=== PATIENT | male | born 1940 | race Caucasian/White ===

== ENCOUNTER 2017-07-15 14:08 | Emergency (ER) | payer MEDICARE, OTHER ==
[~2017-07-15] VITALS: Ht 193 cm; Wt 96.2 kg
[~2017-07-15 14:08] MED LIST: APIX5TAB3 PO; ASPI-630 PO; LISI-334 PO; LISI10TA2 PO; LISI1TAB5 PO; METO50TA2 PO; METO50TA29 PO; SIMV40TA3 PO
--- NOTE | 2017-07-15 15:10 | PHYS DOC ---
Past History Past Medical History: High Cholesterol, Hypertension Additional Past Medical Histor: pulmonary embolism Past Surgical History: Appendectomy, Hip Replacement Alcohol Use: None Drug Use: None Adult General Chief Complaint Chief Complaint: HEADACHE HPI HPI Patient is a 76 year old male who presents with day history of intermittent intensity gradual onset headache right frontal no eye pain or blurry vision no pain in the temporal area no jaw pain or difficulty swallowing or speaking. 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 Denies any head trauma. He is on anticoagulation with eloquis Review of Systems Review of Systems Constitutional: Denies fever or chills [] Eyes: Denies change in visual acuity, redness, or eye pain [] HENT: Denies nasal congestion or sore throat [] Respiratory: Denies cough or shortness of breath [] Cardiovascular: No additional information not addressed in HPI [] GI: Denies abdominal pain, nausea, vomiting, bloody stools or diarrhea [] : Denies dysuria or hematuria [] Musculoskeletal: Denies back pain or joint pain [] Integument: Denies rash or skin lesions [] Neurologic: Denies headache, focal weakness or sensory changes [] Endocrine: Denies polyuria or polydipsia [] All other systems were reviewed and found to be within normal limits, except as documented in this note. Allergies Allergies Allergies Coded Allergies Type Severity Reaction Last Updated Verified ampicillin Allergy Intermediate HIVES 10/10/15 Yes Physical Exam Physical Exam Constitutional: Well developed, well nourished, no acute distress, non-toxic appearance. [] HENT: Normocephalic, atraumatic, bilateral external ears normal, oropharynx moist, no oral exudates, nose normal. No pain to palpation in the right temporal or left lutheran. [] Eyes: PERRLA, EOMI, conjunctiva normal, no discharge. Eyes nontender no swelling or injection or drainage. [] Neck: Normal range of motion, no tenderness, supple, no stridor. No nuchal rigidity.[] Cardiovascular:Heart rate regular rhythm, no murmur [] Lungs & Thorax: Bilateral breath sounds clear to auscultation [] Abdomen: Bowel sounds normal, soft, no tenderness, no masses, no pulsatile masses. [] Skin: Warm, dry, no erythema, no rash. [] Back: No tenderness, no CVA tenderness. [] Extremities: No tenderness, no cyanosis, no clubbing, ROM intact, no edema. [] Neurologic: Alert and oriented X 3, normal motor function, normal sensory function, no focal deficits noted. [] Psychologic: Affect normal, judgement normal, mood normal. [] EKG EKG [] Radiology/Procedures Radiology/Procedures CT head negative for bleed but he does have sinusitis on the right side which probably explains his symptoms. Her radiology report Course & Med Decision Making Course & Med Decision Making Pertinent Labs and Imaging studies reviewed. (See chart for details) Symptoms are probably most consistent with tension or stress headache given the history however since he is on blood thinners we will check a CT scan to eliminate subdural hematoma. Do not suspect temporal arteritis there is no pain to palpation over the lutheran and no eye complaints. Plan to treat with oral antibiotics and treat symptoms of the headache.] Dragon Disclaimer Dragon Disclaimer This electronic medical record was generated, in whole or in part, using a voice recognition dictation system. Departure Departure: Impression: Primary Impression: Acute sinusitis Additional Impressions: Tension headache Sinus headache Disposition: HOME, SELF-CARE Condition: IMPROVED Referrals: MAGALYS AGUILERA MD (PCP) Patient Instructions: Sinusitis, [id number], Tension Headache, [id number] Scripts Cephalexin (KEFLEX) 500 Mg Capsule 1 CAP PO TID, #21 CAP Prov: JAYA TELLEZ MD 07/15/17 Problem Qualifiers JAYA TELLEZ MD Jul 15, 2017 15:10
--- NOTE | 2017-07-15 15:23 | RAD ---
CT head without contrast 07/15/2017 Clinical indication: Severe headache. Comparison: CT head 09/13/2015 Technique: Multiple CT images of the head were obtained without contrast according to standard protocol. RS Compliance Statement: One or more of the following individualized dose reduction techniques were utilized for this examination: 1. Automated exposure control 2. Adjustment of the mA and/or kV according to patient size 3. Use of iterative reconstruction technique Findings: No acute intracranial hemorrhage or extra-axial fluid collection. No midline shift. Ventricles and subarachnoid spaces are normal in size and configuration for age. Bledsoe-white matter interfaces are maintained. The basal cisterns are patent. No midline shift or mass effect. There is complete opacification the visualized right maxillary sinus and the right ethmoid air cells and the right frontal sinus Impression: 1. No acute intracranial hemorrhage. 2. Complete opacification of the right frontal and right ethmoid sinuses and visualized right maxillary sinus compatible with sinusitis.
[2017-07-15] MEDS ORDERED: ONDANSETRON ODT 4 MG TAB.RAPDIS PO ONE (15:30)
[2017-07-15] MEDS ORDERED: ACETAMINOPHEN 500 MG TABLET PO ONE (15:30)
[2017-07-15 15:32] LABS: BASO % 1 % (0-3); EOS # 0.1 x10^3/uL (0.0-0.7); EOS % 2 % (0-3); HEMATOCRIT 44.7 % (39.0-53.0); LYMPH # 2.5 x10^3/uL (1.0-4.8); LYMPH % 32 % (24-48); MEAN CORPUSCULAR HEMOGLOBIN 32 pg (25-35); MEAN CORPUSCULAR HGB CONC 34 g/dL (31-37); MEAN CORPUSCULAR VOLUME 95 fL (79-100); MONO # 0.7 x10^3/uL (0.0-1.1); MONO % 9 % (0-9); NEUT # 4.6 x10^3uL (1.8-7.7); NEUT % 58 % (31-73); PLATELET COUNT 197 x10^3/uL (140-400); RED BLOOD COUNT 4.68 x10^6/uL (4.30-5.70)
[2017-07-15] MEDS ORDERED: CEPH-264 PO (15:34)
[2017-07-15 15:36] LABS: CALCIUM 9.2 mg/dL (8.5-10.1); CREATININE 1.4 mg/dL (0.7-1.3); GFR 49.5; POTASSIUM 4.9 mmol/L (3.5-5.1)
[2017-07-15 15:37] VITALS: BP 170/89
== END 2017-07-15 15:37 | disposition home or self-care (01) ==
LOC: ER 14:08
DX: G44.209 Tension-type headache, unspecified, not intractable (principal); J01.90 Acute sinusitis, unspecified; I10 Essential (primary) hypertension; E78.00 Pure hypercholesterolemia, unspecified; Z79.01 Long term (current) use of anticoagulants; Z86.711 Personal history of pulmonary embolism; Z88.1 Allergy status to other antibiotic agents
CPT/HCPCS: 36415; 70450; 80048; 85025; 99285; Q0162

== ENCOUNTER 2017-10-27 06:25 | Emergency (ER) | payer MEDICARE, OTHER ==
[~2017-10-27] VITALS: Ht 193 cm; Wt 102.1 kg
[~2017-10-27 06:25] MED LIST changes: +CEPH-264 PO; -METO50TA2 PO; +METO50TA6 PO
[2017-10-27 07:49] LABS: INFLUENZA A PATIENT NEGATIVE (NEGATIVE); INFLUENZA B PATIENT NEGATIVE (NEGATIVE)
[2017-10-27 07:59] VITALS: BP 131/57
[2017-10-27] MEDS ORDERED: HYDR115S2 PO (08:02)
--- NOTE | 2017-10-27 08:02 | PHYS DOC ---
Past History Past Medical History: High Cholesterol, Hypertension, Kidney Stones, Other Additional Past Medical Histor: pulmonary embolism Past Surgical History: Appendectomy, Hip Replacement, Other Alcohol Use: None Drug Use: None Adult General Chief Complaint Chief Complaint: SORE THROAT HPI HPI 77-year-old male patient complaining of cough for the last 4 days with yellow sputum and nasal congestion and sore throat and change of voice since last night during better today. Patient denies fever, shortness of breath, chest pain , sick contact, nausea and vomiting. Review of Systems Review of Systems Constitutional: Denies fever or chills [] Eyes: Denies change in visual acuity, redness, or eye pain [] HENT: Reports nasal congestion and sore throat [] Respiratory: Denies shortness of breath, reports cough [] Cardiovascular: No additional information not addressed in HPI [] GI: Denies abdominal pain, nausea, vomiting, bloody stools or diarrhea [] : Denies dysuria or hematuria [] Musculoskeletal: Denies back pain or joint pain [] Integument: Denies rash or skin lesions [] Neurologic: Denies headache, focal weakness or sensory changes [] Endocrine: Denies polyuria or polydipsia [] All other systems were reviewed and found to be within normal limits, except as documented in this note. Allergies Allergies Allergies Coded Allergies Type Severity Reaction Last Updated Verified ampicillin Allergy Intermediate HIVES 10/10/15 Yes Physical Exam Physical Exam Constitutional: Well developed, well nourished, mild distress, non-toxic appearance. [] HENT: Normocephalic, atraumatic, bilateral external ears normal, pharyngeal erythema, oropharynx moist, no oral exudates, nose normal. [] Eyes: PERRLA, EOMI, conjunctiva normal, no discharge. [] Neck: Normal range of motion, no tenderness, supple, no stridor. [] Cardiovascular:Heart rate regular rhythm, no murmur [] Lungs & Thorax: Bilateral breath sounds clear to auscultation [] Abdomen: Bowel sounds normal, soft, no tenderness, no masses, no pulsatile masses. [] Skin: Warm, dry, no erythema, no rash. [] Back: No tenderness, no CVA tenderness. [] Extremities: No tenderness, no cyanosis, no clubbing, ROM intact, no edema. [] Neurologic: Alert and oriented X 3, normal motor function, normal sensory function, no focal deficits noted. [] Psychologic: Affect normal, judgement normal, mood normal. [] Current Patient Data Vital Signs Vital Signs Date Time Temp Pulse Resp B/P (MAP) Pulse Ox O2 Delivery O2 Flow Rate FiO2 10/27/17 06:40 97.0 74 20 96 Room Air Lab Results Laboratory Tests Test 10/27/17 06:55 10/27/17 07:00 Influenza Type A (Rapid) Negative (NEGATIVE) Influenza Type B (Rapid) Negative (NEGATIVE) Group A Streptococcus Rapid Negative (NEGATIVE) EKG EKG [] Radiology/Procedures Radiology/Procedures [] Course & Med Decision Making Course & Med Decision Making Pertinent Labs reviewed. (See chart for details) discharge: I've spoken with the patient and/or caregivers. I've explained the patient's condition, diagnosis and treatment plan based on information available to me at this time. I've answered the patient's and/or caregivers questions and addressed any concerns. The patient and/or caregivers have a good understanding the patient's diagnosis, condition and treatment plan as can be expected at this point. Vital signs have been stabilized. The patient's condition is stable for discharge from the emergency department. The patient will pursue further outpatient evaluation with her primary care provider or other designated consulting physician as outlined in the discharge instructions. Patient and/or caregivers are agreeable to this plan of care and follow-up instructions have been explained in detail. The patient and/or caregivers have received these instructions in written format and expressed understanding of these discharge instructions. The patient and her caregivers are aware that if any significant change in condition or worsening of symptoms should prompt him to immediately return to this of the closest emergency department. If an emergent department is not readily available I would encourage him to call 911. [] Dragon Disclaimer Dragon Disclaimer This electronic medical record was generated, in whole or in part, using a voice recognition dictation system. Departure Departure: Impression: Primary Impression: Acute laryngitis Additional Impression: Upper respiratory infection Disposition: HOME, SELF-CARE (At 0759) Condition: STABLE Referrals: MAGALYS AGUILERA MD (PCP) Patient Instructions: Laryngitis, Upper Respiratory Infection, Adult Additional Instructions: Drink plenty of liquids Follow-up with your primary care physician in 3-5 days Return to ER if not getting better Scripts Hydrocodone/Chlorphen P-Stirex (Tussionex Pennkinetic Susp) 115 Ml Zarina.er.[id number] 5 ML PO BID, #120 ML Prov: JANIS ESCAMILLA MD 10/27/17 Problem Qualifiers JANIS ESCAMILLA MD Oct 27, 2017 08:02
== END 2017-10-27 08:05 | disposition home or self-care (01) ==
LOC: ER 06:25
DX: J04.0 Acute laryngitis (principal); E78.00 Pure hypercholesterolemia, unspecified; I10 Essential (primary) hypertension; Z87.442 Personal history of urinary calculi; Z86.711 Personal history of pulmonary embolism; Z88.1 Allergy status to other antibiotic agents
CPT/HCPCS: 87070; 87804; 87880; 99284

== ENCOUNTER 2018-05-16 19:35 | Emergency (ER) | payer MEDICARE, OTHER ==
[~2018-05-16] VITALS: Ht 190.5 cm; Wt 94.3 kg
[~2018-05-16 19:35] MED LIST changes: +HYDR115S2 PO
--- NOTE | 2018-05-16 20:28 | RAD ---
CT Head W/O Contrast: History: Severe headache Comparison: July 15, 2017 Axial images were obtained without contrast. There is moderate diffuse atrophy. There is no mass effect, extraaxial fluid collections or hydrocephalus. There is no focal loss of daley-white matter distinction to suggest acute ischemia, i.e. stroke. Impression: No acute findings. RS Compliance Statement: One or more of the following individualized dose reduction techniques were utilized for this examination: 1. Automated exposure control 2. Adjustment of the mA and/or kV according to patient size 3. Use of iterative reconstruction technique Electronically signed by: Garry Ennis III, MD (05/16/2018 8:24 PM) [id number]
[2018-05-16 20:59] LABS: BASO % 1 % (0-3); EOS # 0.2 x10^3/uL (0.0-0.7); EOS % 3 % (0-3); HEMATOCRIT 41.5 % (39.0-53.0); HEMOGLOBIN 13.8 g/dL (13.0-17.5); LYMPH # 2.6 x10^3/uL (1.0-4.8); LYMPH % 41 % (24-48); MEAN CORPUSCULAR HEMOGLOBIN 32 pg (25-35); MEAN CORPUSCULAR HGB CONC 33 g/dL (31-37); MEAN CORPUSCULAR VOLUME 96 fL (79-100); MONO # 0.6 x10^3/uL (0.0-1.1); MONO % 10 % (0-9); NEUT # 2.9 x10^3uL (1.8-7.7); NEUT % 46 % (31-73); PLATELET COUNT 179 x10^3/uL (140-400); RED BLOOD COUNT 4.34 x10^6/uL (4.30-5.70); RED CELL DISTRIBUTION WIDTH 13.4 % (11.5-14.5); WHITE BLOOD COUNT 6.4 x10^3/uL (4.0-11.0)
[2018-05-16 21:09] LABS: CALCIUM 8.3 mg/dL (8.5-10.1); CREATININE 1.5 mg/dL (0.7-1.3); GFR 45.6; POTASSIUM 4.3 mmol/L (3.5-5.1)
[2018-05-16 21:20] VITALS: BP 130/64
--- NOTE | 2018-05-17 02:37 | ED.ADGEN ---
Past History Past Medical History: Arrhythmia, DVT, High Cholesterol, Hypertension, Kidney Stones Additional Past Medical Histor: pulmonary embolism Past Surgical History: Appendectomy, Hip Replacement, Other Alcohol Use: None Drug Use: None Adult General Chief Complaint Chief Complaint FLETCHER HPI HPI Patient is a 77 year old male with h/o DVT or PE currently on Eloquis who presents with headache 24 hours. Headache is located over right parietal region is described as lancinating. It is intermittent lasting seconds at time. Associated with scalp tenderness and paresthesias. No rash. No change of vision , eye pain, nausea vomiting or sweats. No neck pain. No other acute symptoms or complaints. No medications or therapy sticking prior to ED arrival. [] Review of Systems Review of Systems ROS as per HPI All other systems were reviewed and found to be within normal limits, except as documented in this note. Allergies Allergies Allergies Coded Allergies Type Severity Reaction Last Updated Verified ampicillin Allergy Intermediate HIVES 10/10/15 Yes ibuprofen Allergy Unknown 05/16/18 Yes Physical Exam Physical Exam Constitutional: Well developed, well nourished, no acute distress, non-toxic appearance. [] HENT: Normocephalic, atraumatic, bilateral external ears normal, oropharynx moist, no oral exudates, nose normal. [] Eyes: PERRLA, EOMI, conjunctiva normal, no discharge. [] Neck: Normal range of motion, no tenderness, supple, no stridor. [] Cardiovascular:Heart rate regular rhythm, no murmur [] Lungs & Thorax: Bilateral breath sounds clear to auscultation [] Abdomen: Bowel sounds normal, soft, no tenderness. [] Skin: Warm. [] Back: No tenderness. [] Extremities: No tenderness. [] Neurologic: Alert and oriented X 3, normal motor function, normal sensory function, no focal deficits noted. [] Psychologic: Affect normal, judgement normal, mood normal. [] Current Patient Data Vital Signs Vital Signs Date Time Temp Pulse Resp B/P (MAP) Pulse Ox O2 Delivery O2 Flow Rate FiO2 05/16/18 21:20 51 16 130/64 (86) 99 Room Air 05/16/18 19:55 98.5 Lab Results Laboratory Tests Test 05/16/18 20:45 White Blood Count 6.4 x10^3/uL (4.0-11.0) Red Blood Count 4.34 x10^6/uL (4.30-5.70) Hemoglobin 13.8 g/dL (13.0-17.5) Hematocrit 41.5 % (39.0-53.0) Mean Corpuscular Volume 96 fL (79-100) Mean Corpuscular Hemoglobin 32 pg (25-35) Mean Corpuscular Hemoglobin Concent 33 g/dL (31-37) Red Cell Distribution Width 13.4 % (11.5-14.5) Platelet Count 179 x10^3/uL (140-400) Neutrophils (%) (Auto) 46 % (31-73) Lymphocytes (%) (Auto) 41 % (24-48) Monocytes (%) (Auto) 10 % (0-9) H Eosinophils (%) (Auto) 3 % (0-3) Basophils (%) (Auto) 1 % (0-3) Neutrophils # (Auto) 2.9 x10^3uL (1.8-7.7) Lymphocytes # (Auto) 2.6 x10^3/uL (1.0-4.8) Monocytes # (Auto) 0.6 x10^3/uL (0.0-1.1) Eosinophils # (Auto) 0.2 x10^3/uL (0.0-0.7) Basophils # (Auto) 0.0 x10^3/uL (0.0-0.2) Sodium Level 140 mmol/L (136-145) Potassium Level 4.3 mmol/L (3.5-5.1) Chloride Level 107 mmol/L (98-107) Carbon Dioxide Level 28 mmol/L (21-32) Anion Gap 5 (6-14) L Blood Urea Nitrogen 26 mg/dL (8-26) Creatinine 1.5 mg/dL (0.7-1.3) H Estimated GFR (Cockcroft-Gault) 45.6 Glucose Level 87 mg/dL (70-99) Calcium Level 8.3 mg/dL (8.5-10.1) L EKG EKG [] Radiology/Procedures Radiology/Procedures [CT head: neg] Course & Med Decision Making Course & Med Decision Making Pertinent Labs and Imaging studies reviewed. (See chart for details) [FLETCHER is not the worst in his life. No temporal scalp TTP, neuro deficits. CT head negative, No neck pain, stiffness or chest pain. ] Final Impression Final Impression [1. Headache] Kelly Disclaimer Dragon Disclaimer This electronic medical record was generated, in whole or in part, using a voice recognition dictation system. WESLY HAMMER DO May 17, 2018 02:37
== END 2018-05-16 21:20 | disposition home or self-care (01) ==
LOC: ER 19:35
DX: R51 Headache (principal); E78.00 Pure hypercholesterolemia, unspecified; I10 Essential (primary) hypertension; Z86.718 Personal history of other venous thrombosis and embolism; Z87.442 Personal history of urinary calculi; Z86.711 Personal history of pulmonary embolism; Z88.1 Allergy status to other antibiotic agents; Z88.6 Allergy status to analgesic agent
CPT/HCPCS: 36415; 70450; 80048; 85025; 99285

== ENCOUNTER 2020-07-29 06:50 | Emergency (ER) | payer MEDICARE, OTHER ==
[~2020-07-29] VITALS: Ht 190.5 cm; Wt 99.2 kg
[~2020-07-29 06:50] MED LIST changes: +LISI1TAB37 PO; -LISI1TAB5 PO; +SIMV40TA18 PO; -SIMV40TA3 PO
--- NOTE | 2020-07-29 06:56 | PHYS DOC ---
Past History Past Medical History: Arrhythmia, DVT, High Cholesterol, Hypertension, Kidney Stones Additional Past Medical Histor: pulmonary embolism Past Surgical History: Appendectomy, Hip Replacement, Other Alcohol Use: None Drug Use: None Adult General HPI HPI Patient is a 89-year-old male presenting for right knee pain. This is a chronic issue. He has had prior hip surgery and subsequent knee pain, states he has a history of osteoarthritis. 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 Reports upgrading his walking shoes which cause worsened right knee and right hip pain so he subsequently gave them away. Since buying these shoes approximately 2 weeks ago, he has had ongoing right knee pain without any specific injury or inciting event. Describes classic symptoms of osteoarthritis. He has not taken anything for the pain. He has a primary care physician but states " I figured they would probably send me here which is why did not go to them". Review of Systems Review of Systems Fourteen body systems of review of systems have been reviewed. See HPI for pertinent positives and negative responses, other stanley all other systems are negative, non-pertinent or non-contributory Allergies Allergies Allergies Coded Allergies Type Severity Reaction Last Updated Verified ampicillin Allergy Intermediate HIVES 10/10/15 Yes ibuprofen Allergy Unknown 05/16/18 Yes Physical Exam Physical Exam Constitutional: Well developed, well nourished, no acute distress, non-toxic appearance. HENT: Normocephalic, atraumatic, bilateral external ears normal, oropharynx moist, no oral exudates, nose normal. Eyes: PERRLA, EOMI, conjunctiva normal, no discharge. Neck: Normal range of motion, no tenderness, supple, no stridor. Cardiovascular: Heart rate regular, sinus rhythm, no murmurs rubs or gallops Lungs & Thorax: Bilateral breath sounds clear to auscultation Abdomen: Bowel sounds normal, soft, no tenderness, no masses, no pulsatile masses. Nonsurgical abdomen, no peritoneal signs Skin: Warm, dry, no erythema, no rash. Back: No tenderness, no CVA tenderness. Extremities: No tenderness, no cyanosis, no clubbing, ROM intact, no edema. Negative Caitlin of right leg, negative anterior and posterior Toño, no valgus or varus laxity, negative Kady's test, no patellar grind, no tenderness to palpation of the lateral and/or medial joint lines or fibular head Neurologic: Alert and oriented X 3, grossly normal motor & sensory function, no focal deficits noted. Psychologic: Affect normal, judgement normal, mood normal. Current Patient Data Vital Signs Vital Signs Date Time Temp Pulse Resp B/P (MAP) Pulse Ox O2 Delivery O2 Flow Rate FiO2 07/29/20 06:58 96.1 60 16 156/63 (94) 98 EKG EKG [] Radiology/Procedures Radiology/Procedures [] Heart Score Risk Factors: Risk Factors: DM, Current or recent (<one month) smoker, HTN, HLP, family history of CAD, obesity. Risk Scores: Risk Factors: DM, Current or recent (<one month) smoker, HTN, HLP, family history of CAD, obesity. Course & Med Decision Making Course & Med Decision Making ABCs unremarkable Patient ambulatory and appears at baseline health. Comprehensive history and physical exam consistent with right knee pain that is not emergent and/or surgical in nature. Likely ongoing arthritis issues that is likely transient in nature. I advised patient to continue supportive care with knee exercises, activity as tolerated and to incorporate Tylenol as needed for pain. I also advised him to contact his primary care physician to discuss need for outpatient physical therapy referral. Patient fit for discharge home. Strict return precautions were discussed with good understanding, all questions and concerns addressed prior to ER departure in stable condition Dragon Disclaimer Dragon Disclaimer This electronic medical record was generated, in whole or in part, using a voice recognition dictation system. Departure Departure: Impression: Primary Impression: Right knee pain Disposition: 01 DC HOME SELF CARE/HOMELESS Condition: STABLE Referrals: MAGALYS AGUILERA MD (PCP) Patient Instructions: Knee Pain Additional Instructions: As discussed, please call your primary care physician immediately after ER departure to set up outpatient follow-up in upcoming 1 to 10 days time after ER departure As discussed, please take Tylenol as needed for your pain. Please continue knee exercises as discussed in ER handout provided to you today. Please also discussed with your primary care physician need for outpatient physical therapy referral If any concerning signs or symptoms present prior to outpatient follow-up please do not hesitate to come back for repeat examination Is a pleasure to take care of you and I wish you a speedy recovery! ADAN MCKENNA DO Jul 29, 2020 06:56
== END 2020-07-29 07:25 | disposition home or self-care (01) ==
LOC: ER 06:50
DX: M25.561 Pain in right knee (principal); M25.551 Pain in right hip; E78.00 Pure hypercholesterolemia, unspecified; I10 Essential (primary) hypertension; Z87.442 Personal history of urinary calculi; Z86.718 Personal history of other venous thrombosis and embolism; Z90.89 Acquired absence of other organs; Z98.890 Other specified postprocedural states; Z88.1 Allergy status to other antibiotic agents; Z88.8 Allergy status to other drugs, medicaments and biological substances
CPT/HCPCS: 99282

== ENCOUNTER 2022-01-05 12:39 | Emergency (ER) | payer MEDICARE, OTHER ==
[~2022-01-05] VITALS: Ht 190.5 cm; Wt 95.2 kg
[~2022-01-05 12:39] MED LIST changes: -LISI-334 PO; +LISI10TA16 PO; -LISI10TA2 PO; +LISI20TA18 PO
--- NOTE | 2022-01-05 13:29 | PHYS DOC ---
Past History Past Medical History: Arthritis, Arrhythmia, DVT, High Cholesterol, Hypertension, Kidney Stones Additional Past Medical Histor: pulmonary embolism; A FLUTTER Past Surgical History: Appendectomy, Hip Replacement, Tonsillectomy, Other Additional Past Surgical Histo: ABD HERNIA X 5; LEFT ANKLE; RIGHT ELBOW Alcohol Use: None Drug Use: None General Adult EDM: Chief Complaint: MECHANICAL FALL HPI: HPI: Patient is a 81-year-old male coming in for right posterior rib pain. Patient states he was out gardening and stepped backwards and lost his balance and fell onto his right back. Denies any history of loss of consciousness. Patient is also complaining of a scrape to his right knee. Patient is currently taking Eliquis. Patient states he feels like he has been fractures. Review of Systems: Review of Systems: All other systems within normal limits except for as noted in the HPI Allergies: Allergies: Allergies Coded Allergies Type Severity Reaction Last Updated Verified ampicillin Allergy Intermediate HIVES 01/05/22 Yes ibuprofen Allergy Unknown 01/05/22 Yes Physical Exam: PE: Constitutional: Well developed, well nourished, no acute distress, non-toxic a ppearance. [] HENT: Normocephalic, atraumatic, bilateral external ears normal, nose normal. [] Eyes: PERRLA, conjunctiva normal, no discharge. [] Neck: No rigidity, supple, no stridor. No C-spine tenderness [] Cardiovascular: Regular rate and rhythm, brisk cap refill [] Lungs & Thorax: Non labored symmetric respirations, no tachypnea or respiratory distress [] Abdomen: Soft, nondistended. Skin: Warm, dry, no erythema, no rash. [] Abrasion to right knee Back: Unremarkable, no point spine tenderness, step-off or deformity, tenderness over right posterior ribs, no crepitus Extremities: No deformities, range of motion grossly intact, no lower extremity edema [] Neurologic: Alert and oriented X 3, no focal deficits noted. [] Psychologic: Affect normal, judgement normal, mood normal. [] Current Patient Data: Vital Signs: Vital Signs Date Time Temp Pulse Resp B/P (MAP) Pulse Ox O2 Delivery O2 Flow Rate FiO2 01/05/22 12:40 97.5 71 18 150/60 (90) 98 Room Air EKG: EKG: [] Radiology/Procedures: Radiology/Procedures: [address] [address] IMAGING REPORT Signed PATIENT: ABHINAV SANCHEZ ACCOUNT: [id number] : 1940 LOCATION: ER AGE: 81 SEX: M EXAM STATUS: REG ER ORD. PHYSICIAN: GAIL ARROYO MD REASON: fall today PROCEDURE: CT HEAD AND CERVICAL SPINE WO EXAM: Head and cervical spine CT without contrast. HISTORY: Fall. Pain. TECHNIQUE: Computed tomographic images of the head and cervical spine were obtained without contrast. *One or more of the following individualized dose reduction techniques were utilized for this examination: 1. Automated exposure control. 2. Adjustment of the mA and/or kV according to patient size. 3. Use of iterative reconstruction technique. COMPARISON: 05/16/2018. FINDINGS: Head: There is no intracranial hemorrhage. There is no mass effect or midline shift. There is no hydrocephalus. There is cerebral atrophy. There are cerebral white matter changes due to chronic small vessel disease. There is an incidental right choroid fissure cyst. There is right paranasal sinus opacification due to suspected sinusitis. The mastoid air cells are clear. There is no suspicious calvarial lesion. Cervical spine:. There is minimal multilevel degenerative listhesis. There is multilevel endplate remodeling, disc space narrowing and osteophytosis. There is chronic mild decreased anterior vertebral body height at C5. There is multilevel facet and uncovertebral arthropathy. There are multiple disc bulges and small disc protrusions and disc osteophyte complexes. The combination of degenerative changes results in mild right foraminal stenosis at C3-C4, moderate right and mild left foraminal stenosis and mild central canal stenosis at C4-C5, moderate right and mild left foraminal stenosis at C5- C6, and moderate bilateral foraminal stenosis at C6-C7. There is calcified atherosclerotic plaque involving the carotid bifurcations. The airways midline and patent. There is biapical pleural parenchymal scarring. IMPRESSION: 1. No acute intracranial finding or evidence of acute cervical spine trauma. 2. Cerebral white matter changes due to chronic small vessel disease. 3. Cerebral atrophy. 4. Degenerative change involving the cervical spine, resulting in stenosis at the aforementioned levels. Electronically signed by: Jess Alicea MD (01/05/2022 1:36 PM) [id number] DICTATED AND SIGNED BY: JESS ALICEA MD DATE: 01/05/22 1320 CC: GAIL ARROYO MD; MAGALYS AGUILERA MD ~ [] Heart Score: C/O Chest Pain: No Risk Factors: Risk Factors: DM, Current or recent (<one month) smoker, HTN, HLP, family history of CAD, obesity. Risk Scores: Score 0 - 3: 2.5% MACE over next 6 weeks - Discharge Home Score 4 - 6: 20.3% MACE over next 6 weeks - Admit for Clinical Observation Score 7 - 10: 72.7% MACE over next 6 weeks - Early Invasive Strategies Course & Med Decision Making: Course & Med Decision Making Pertinent Labs and Imaging studies reviewed. (See chart for details) Patient's trauma scans were done without contrast due to national shortage. Patient with stable vitals and placed on nonrebreather to aid in pneumothorax absorption. Patient has multiple rib fractures and will be transferred to [place] under the care of Dr. Hickey with consult to trauma surgeon Dr. Conteh. [] Dragon Disclaimer: Dragon Disclaimer: This electronic medical record was generated, in whole or in part, using a voice recognition dictation system. Departure Departure: Impression: Primary Impression: Fall Additional Impressions: Traumatic closed fracture of multiple ribs of right side with minimal displacement Hemopneumothorax on right Disposition: HOME / SELF CARE / HOMELESS Condition: STABLE Referrals: MAGALYS AGUILERA MD (PCP) GAIL ARROYO MD January 05, 2022 13:29
--- NOTE | 2022-01-05 13:39 | RAD ---
EXAM: Head and cervical spine CT without contrast. HISTORY: Fall. Pain. TECHNIQUE: Computed tomographic images of the head and cervical spine were obtained without contrast. *One or more of the following individualized dose reduction techniques were utilized for this examina tion: 1. Automated exposure control. 2. Adjustment of the mA and/or kV according to patient size. 3. Use of iterative reconstruction technique. COMPARISON: 05/16/2018. FINDINGS: Head: There is no intracranial hemorrhage. There is no mass effect or midline shift. There is no hydr ocephalus. There is cerebral atrophy. There are cerebral white matter changes due to chronic small ve ssel disease. There is an incidental right choroid fissure cyst. There is right paranasal sinus opaci fication due to suspected sinusitis. The mastoid air cells are clear. There is no suspicious calvaria l lesion. Cervical spine:. There is minimal multilevel degenerative listhesis. There is multilevel endplate rem odeling, disc space narrowing and osteophytosis. There is chronic mild decreased anterior vertebral b christine height at C5. There is multilevel facet and uncovertebral arthropathy. There are multiple disc bu lges and small disc protrusions and disc osteophyte complexes. The combination of degenerative changes results in mild right foraminal stenosis at C3-C4, moderate r ight and mild left foraminal stenosis and mild central canal stenosis at C4-C5, moderate right and mi ld left foraminal stenosis at C5-C6, and moderate bilateral foraminal stenosis at C6-C7. There is calcified atherosclerotic plaque involving the carotid bifurcations. The airways midline and patent. There is biapical pleural parenchymal scarring. IMPRESSION: 1. No acute intracranial finding or evidence of acute cervical spine trauma. 2. Cerebral white matter changes due to chronic small vessel disease. 3. Cerebral atrophy. 4. Degenerative change involving the cervical spine, resulting in stenosis at the aforementioned leve ls. Electronically signed by: Jess Ramirez MD (01/05/2022 1:36 PM) [id number]
[2022-01-05 13:45] LABS: BASO % 0 % (0-3); EOS % 1 % (0-3); HEMATOCRIT 44.9 % (39.0-53.0); HEMOGLOBIN 14.7 g/dL (13.0-17.5); LYMPH # 0.9 x10^3/uL (1.0-4.8); LYMPH % 10 % (24-48); MEAN CORPUSCULAR HEMOGLOBIN 32 pg (25-35); MEAN CORPUSCULAR HGB CONC 33 g/dL (31-37); MEAN CORPUSCULAR VOLUME 97 fL (79-100); MONO # 0.6 x10^3/uL (0.0-1.1); MONO % 7 % (0-9); NEUT % 83 % (31-73); PLATELET COUNT 166 x10^3/uL (140-400); RED BLOOD COUNT 4.61 x10^6/uL (4.30-5.70); RED CELL DISTRIBUTION WIDTH 13.3 % (11.5-14.5); WHITE BLOOD COUNT 9.6 x10^3/uL (4.0-11.0)
[2022-01-05 13:53] LABS: CALCIUM 8.9 mg/dL (8.5-10.1); CREATININE 1.5 mg/dL (0.7-1.3); GFR 45.1; POTASSIUM 4.4 mmol/L (3.5-5.1)
[2022-01-05 13:59] LABS: ALBUMIN 3.5 g/dL (3.4-5.0); ALBUMIN/GLOBULIN RATIO 0.9 (1.0-1.7); TOTAL BILIRUBIN 0.6 mg/dL (0.2-1.0); TOTAL PROTEIN 7.5 g/dL (6.4-8.2)
[2022-01-05 16:59] VITALS: BP 161/83
== END 2022-01-05 17:30 | disposition home or self-care (01) ==
LOC: ER 12:39
DX: S22.41XA Multiple fractures of ribs, right side, initial encounter for closed fracture (principal); S27.1XXA Traumatic hemothorax, initial encounter; S80.211A Abrasion, right knee, initial encounter; M19.90 Unspecified osteoarthritis, unspecified site; E78.00 Pure hypercholesterolemia, unspecified; I10 Essential (primary) hypertension; Z86.718 Personal history of other venous thrombosis and embolism; Z87.442 Personal history of urinary calculi; Z86.711 Personal history of pulmonary embolism; Z88.1 Allergy status to other antibiotic agents; Z88.6 Allergy status to analgesic agent; W18.39XA Other fall on same level, initial encounter; Y93.89 Activity, other specified; Y92.89 Other specified places as the place of occurrence of the external cause; Y99.8 Other external cause status
CPT/HCPCS: 36415; 70450; 71250; 72125; 74176; 80053; 85025; 85610; 96374; 99285; J3010